=== PATIENT | female | born 1950 | race Caucasian/White ===

== ENCOUNTER 2017-10-19 22:36 | Emergency (ER) | payer BC ==
--- NOTE | 2017-10-19 22:47 | Emergency Department Record ---
History of Present Illness - General Chief Complaint: Choking Stated Complaint: CHOKING ON PILL Time Seen by Provider: 10/19/17 22:42 Source: Patient Mode of Arrival: Ambulatory Limitations: No limitations - History of Present Illness Initial Comments: 67 yo female presents with pill foreign body sensation that occurs just prior to arrival. She states she has history of swallow difficulties and has had this happen in the past. She has a good cough and clear voice but still has a FB sensation. No syncope. No hypoxia on arrival. She states she has had pneumonia in the past from this. She states she is being worked up at [facility]. Onset/Timin -: Minutes(s) Severity: Moderate Improves With: Upright position Worsens With: Lying flat Context: Choking/aspiration Associated Symptoms: Pain with inspiration Treatments Prior to Arrival: None - Related Data Home Oxygen Therapy: No Allergies Allergy/AdvReac Type Severity Reaction Status Date / Time amoxicillin trihydrate Allergy PT UNSURE Verified 01/27/16 19:24 [From Augmentin] OF REACTION aspirin Allergy ITCHING Verified 12/18/14 01:11 ibuprofen [From Motrin] Allergy ITCHING Verified 12/18/14 01:11 naproxen sodium [From Aleve] Allergy ITCHING Verified 12/18/14 01:11 potassium clavulanate Allergy PT UNSURE Verified 01/27/16 19:24 [From Augmentin] OF REACTION Sulfa (Sulfonamide Allergy HIVES Verified 12/18/14 01:11 Antibiotics) amoxicillin AdvReac NAUSEA AND Verified 12/18/14 01:11 VOMITING cephalexin monohydrate AdvReac NAUSEA AND Verified 12/18/14 01:11 [From Keflex] VOMITING Travel Screening - Travel/Exposure Within Last 30 Days Have you traveled within the last 30 days?: No Review of Systems Constitutional: Denies: Chills, Fever, Malaise, Weakness Eyes: Denies: Eye discharge ENT: Denies: Congestion, Throat pain Respiratory: Denies: Cough, Dyspnea Cardiovascular: Reports: Dyspnea on exertion. Denies: Chest pain, Palpitations , Syncope Endocrine: Denies: Fatigue Gastrointestinal: Denies: Abdominal pain, Diarrhea, Nausea, Vomiting Musculoskeletal: Denies: Arthralgia, Back pain, Myalgia Skin: Denies: Bruising, Change in color, Rash Neurological: Denies: Headache, Numbness, Weakness Psychiatric: Reports: Anxiety Hematological/Lymphatic: Denies: Easy bleeding, Easy bruising Past Medical History - SOCIAL HISTORY Smoking Status: Former smoker Alcohol Use: None Drug Use: None - RESPIRATORY Hx Respiratory Disorders: No - CARDIOVASCULAR Hx Cardio Disorders: Yes Hx Hypertension: Yes - NEURO Hx Neuro Disorders: No - GI Hx GI Disorders: No - Hx Genitourinary Disorders: No - ENDOCRINE Hx Endocrine Disorders: No - MUSCULOSKELETAL Hx Musculoskeletal Disorders: Yes Hx Arthritis: Yes - PSYCH Hx Psych Problems: Yes Hx Anxiety: Yes Hx Depression: Yes - HEMATOLOGY/ONCOLOGY Hx Hematology/Oncology Disorders: Yes Hx Cancer: Yes Family Medical History Any Significant Family History?: Yes Family Hx Comment (NOT TO BE USED IN PLACE OF ITEMS BELOW): thyroid issues w/ mother and sister Hx HTN: Mother, Brother/Sister Physical Exam - General General Appearance: Alert, Oriented x3, Anxious - Head Head exam: Atraumatic, Normal inspection - Eye Eye exam: Normal appearance. negative: Conjunctival injection, Scleral icterus - ENT ENT exam: Normal exam, Mucous membranes moist Ear exam: Normal external inspection Nasal Exam: Normal inspection Mouth exam: Normal external inspection - Neck Neck exam: Normal inspection, Full ROM. negative: Tenderness - Respiratory Respiratory exam: Normal lung sounds bilaterally, Other (frequent cough, clear voice) - Cardiovascular Cardiovascular Exam: Regular rate, Normal rhythm, Normal heart sounds - Rectal Rectal exam: Deferred - exam: Deferred - Extremities Extremities exam: Normal inspection - Neurological Neurological exam: Alert, Normal gait, Oriented X3 - Psychiatric Psychiatric exam: Anxious - Skin Skin exam: Dry, Intact, Normal color, Warm Course Vital Signs 10/19/17 22:38 Temperature 96.9 F L Pulse Rate 84 Respiratory 28 H Rate Blood Pressure 139/92 Pulse Ox 94 L - Reevaluation(s) Reevaluation #1: On arrival the patient was placed in the Trauma area. She is coughing frequently but no hypoxia and she has a clear voice. 10/19/17 22:45 10/19/17 23:03 The patient coughed the pill up intact She is doing much better 10/19/17 23:15 No acute changes on the labs The patient continues to do well She has been referred to [facility] in [place]. 10/19/17 23:22 96% on Room Air CXR was negative 10/20/17 00:02 The patient tolerated PO fluids well She will take her pills in the ED under observation She is 96% on Room Air and reports she is comfortable 10/20/17 00:03 10/20/17 00:19 The patient has tolerated all her evening medications without difficulty, choking or cough She will call her doctors tomorrow that are helping with this ongoing problem Medical Decision Making - Lab Data Result diagrams: 10/19/17 22:40 10/19/17 22:40 Disposition Disposition: Discharge Clinical Impression: Pill dysphagia Disposition: Home, Self-Care Condition: (1) Good Instructions: Performing the Heimlich Maneuver (ED), Dysphagia (ED) Additional Instructions: Call your doctor tomorrow to discuss a recurrent episode Take your pills with extreme care Call your pulmonary doctor tomorrow to report this ER visit as well. Forms: Patient Portal Access Time of Disposition: 23:16 Quality - Quality Measures Quality Measures: N/A - Blood Pressure Screening Does Patient Have Any of the Following: No Blood Pressure Classification: Pre-Hypertensive BP Reading Systolic Measurement: 146 Diastolic Measurement: 80 Screening for High Blood Pressure: < Pre-Hypertensive BP, F/U Documented > [ G8950] Pre-Hypertensive Follow-up Interventions: Referral to alternative/primary care provider.
[2017-10-19 22:51] LABS: BASO % 0.3 % (0-6); EOS % 3.5 % (0-6); GRAN % 40.6 % (47-80); HEMATOCRIT 42.4 % (35.0-47.0); HEMOGLOBIN 13.6 gm/dl (11.6-16.0); LYMPH % 48.8 % (16-45); MEAN CORPUSCULAR HEMOGLOBIN 30.2 pg (27-33); MEAN CORPUSCULAR HGB CONC 32.1 g/dl (32-36); MEAN PLATELET VOLUME 9.1 fl (7.4-10.4); MONO % 6.8 % (0-9); PLATELET COUNT 309 K/uL (130-400); RED BLOOD COUNT 4.51 M/uL (3.80-5.40); RED CELL DISTRIBUTION WIDTH 13.6 % (11.5-14.5); WHITE BLOOD COUNT W/O DIFF 7.2 K/uL (4.2-12.2)
[2017-10-19 22:59] LABS: BLOOD UREA NITROGEN 13 mg/dL (8-23)
[2017-10-19 23:00] LABS: CREATININE 0.9 mg/dL (0.5-0.9); EST GLOMERULAR FILTRATION RATE > 60 mL/min
[2017-10-19 23:02] LABS: GLUCOSE,RANDOM 207 mg/dL (74-109)
[2017-10-19 23:03] LABS: PARTIAL THROMBOPLASTIN TIME 24.5 SECONDS (24.5-39.1); PROTHROMBIN TIME (PATIENT) 10.3 SECONDS (9.5-12.1)
[2017-10-20] MEDS ORDERED: ALBUTEROL SULFATE (0.083%) 2.5 MG/3 ML NEB INH ONE (01:08)
--- NOTE | 2017-10-21 09:02 | RADIOLOGY REPORT ---
EXAM: AP CHEST HISTORY: CHOKING ON A PILL. TECHNIQUE: AP views of the upper and lower chest were obtained. Comparison: Two view chest 01/27/16. FINDINGS: Somewhat shallow inspiration compared to the prior study. No definite acute infiltrate seen. The heart size is probably stable allowing for the current AP as opposed to previous PA positioning. No pleural effusion of pneumothorax evident. Surgical clips right axilla again evident. No definite opaque foreign body identified although some foreign bodies will be radiographically indistinguishable from the adjacent soft tissues. IMPRESSION: 1. SOMEWHAT SHALLOW INSPIRATION. 2. NO ACUTE INFILTRATE EVIDENT. 3. SURGICAL CLIPS RIGHT AXILLA. JOB NUMBER: [id number] MTDD
== END 2017-10-20 00:50 | disposition home or self-care (01) ==
LOC: ER 22:36
DX: R13.10 Dysphagia, unspecified (principal); R09.89 Other specified symptoms and signs involving the circulatory and respiratory systems; R05 Cough; I10 Essential (primary) hypertension; Z87.891 Personal history of nicotine dependence
CPT/HCPCS: 71045; 80048; 85025; 85610; 85730; 94640; 99283; 99284

== ENCOUNTER 2019-09-08 14:45 | Emergency (ER) | payer MEDICARE ==
[2019-09-08] MEDS ORDERED: FUROSEMIDE IV 40MG/4ML VIAL IVP ONE (15:16)
[2019-09-08] MEDS ORDERED: IPRATROPIUM/ALBUTEROL (0.5MG/3MG) NEB INH ONE (15:19)
[2019-09-08 15:23] LABS: ABSOLUTE NEUTROPHIL COUNT 3.57; BASO % 0.2 % (0-6); GRAN % 79.9 % (47-80); HEMATOCRIT 35.3 % (35.0-47.0); HEMOGLOBIN 10.3 gm/dl (11.6-16.0); LYMPH % 16.1 % (16-45); MEAN CELL VOLUME 88.3 fl (81-97); MEAN CORPUSCULAR HEMOGLOBIN 25.7 pg (27-33); MEAN CORPUSCULAR HGB CONC 29.2 g/dl (32-36); MEAN PLATELET VOLUME 9.6 fl (7.4-10.4); MONO % 3.8 % (0-9); PLATELET COUNT 223 K/uL (130-400); RED CELL DISTRIBUTION WIDTH 15.7 % (11.5-14.5); WHITE BLOOD COUNT W/O DIFF 4.5 K/uL (4.2-12.2)
--- NOTE | 2019-09-08 15:25 | Emergency Department Record ---
History of Present Illness - General Chief Complaint: Cough Stated Complaint: COUGH Time Seen by Provider: 09/08/19 14:55 Source: Patient, Family Mode of Arrival: Wheelchair Limitations: No limitations - History of Present Illness Initial Comments: The patient is here due to a worsening cough and SOB for 4 days. She denies any CP or sputum production but she was seen at the 3 days ago and told she had pneumonia and was started on Levaquin. Since her SOB has worsened and today due to the severity she decided to come to the ER. There has been no sputum production or leg swelling. MD Complaint: Cough, Other Onset/Timin -: Days(s) - Related Data Home Medications Medication Instructions Recorded Confirmed Last Taken Insulin Glargine,Hum.rec.anlog 24 unit SQ DAILY 09/08/19 09/08/19 Unknown [Lantus] Magnesium Glycinate [Mag Glycinate] 400 mg PO DAILY 09/08/19 09/08/19 Unknown Allergies Allergy/AdvReac Type Severity Reaction Status Date / Time amoxicillin trihydrate Allergy PT UNSURE Verified 09/08/19 15:05 [From Augmentin] OF REACTION aspirin Allergy ITCHING Verified 09/08/19 15:05 ibuprofen [From Motrin] Allergy ITCHING Verified 09/08/19 15:05 naproxen sodium [From Aleve] Allergy ITCHING Verified 09/08/19 15:05 potassium clavulanate Allergy PT UNSURE Verified 09/08/19 15:05 [From Augmentin] OF REACTION Sulfa (Sulfonamide Allergy HIVES Verified 09/08/19 15:05 Antibiotics) amoxicillin AdvReac NAUSEA AND Verified 09/08/19 15:05 VOMITING cephalexin monohydrate AdvReac NAUSEA AND Verified 09/08/19 15:05 [From Keflex] VOMITING Travel/Exposure Screening - Travel/Exposure Within Last 30 Days Have you traveled within the last 30 days?: No - Travel/Exposure Within Last Year Have you traveled outside the [place] in the last year?: No - Additonal Travel/Exposure Details Have you been exposed to anyone with a communicable illness?: No - Travel Symptoms Symptom Screening: Diarrhea, Cough Review of Systems Constitutional: Reports: Malaise. Denies: Chills, Fever Eyes: Denies: Eye discharge ENT: Reports: Congestion Respiratory: Reports: Cough, Dyspnea Cardiovascular: Denies: Chest pain Endocrine: Reports: Fatigue Gastrointestinal: Denies: Nausea Genitourinary: Denies: Dysuria Musculoskeletal: Denies: Arthralgia Neurological: Denies: Abnormal gait Past Medical History - SOCIAL HISTORY Smoking Status: Former smoker Alcohol Use: Occasional Drug Use: None - RESPIRATORY Hx Respiratory Disorders: Yes Hx Asthma: Yes Hx Bronchitis: Yes Hx Pneumonia: Yes (aspiration) - CARDIOVASCULAR Hx Cardio Disorders: Yes Hx Hypertension: Yes - NEURO Hx Neuro Disorders: Yes Hx Headaches: Yes - GI Hx GI Disorders: Yes Comment:: difficult time swallowing-dysphagia- esophageal narrowing - Hx Genitourinary Disorders: No - ENDOCRINE Hx Endocrine Disorders: Yes Hx Diabetes: Yes (type 2) - MUSCULOSKELETAL Hx Musculoskeletal Disorders: Yes Hx Arthritis: Yes Comment:: joint problems in knees - PSYCH Hx Psych Problems: Yes Hx Anxiety: Yes Hx Depression: Yes - HEMATOLOGY/ONCOLOGY Hx Hematology/Oncology Disorders: Yes Hx Cancer: Yes Family Medical History Any Significant Family History?: No Family Hx Comment (NOT TO BE USED IN PLACE OF ITEMS BELOW): thyroid issues w/mother and sister Hx HTN: Mother, Brother/Sister Physical Exam - General General Appearance: Alert, Oriented x3, Cooperative, Mild distress (The patient is in mild respiratory distress and not able to speak in full sentences.) - Head Head exam: Atraumatic, Normocephalic - Eye Eye exam: Normal appearance, PERRL - ENT Throat exam: Normal inspection. negative: Tonsillar erythema, Tonsillar exudate - Neck Neck exam: Normal inspection, Full ROM. negative: Tenderness - Respiratory Respiratory exam: Accessory muscle use (mild.), Rales, Respiratory distress (mild.), Rhonchi, Wheezes. negative: Normal lung sounds bilaterally - Cardiovascular Cardiovascular Exam: Regular rate, Normal rhythm, Normal heart sounds - GI/Abdominal GI/Abdominal exam: Soft, Normal bowel sounds. negative: Tenderness - Extremities Extremities exam: Normal inspection, Full ROM, Normal capillary refill. negative: Tenderness - Back Back exam: Reports: Normal inspection - Neurological Neurological exam: Alert, Normal gait. negative: Abnormal gait Course Vital Signs 09/08/19 14:47 Temperature 98.4 F Pulse Rate 63 Respiratory 24 Rate Blood Pressure 161/81 Pulse Ox 75 L - Reevaluation(s) Reevaluation #1: The patient is doing better at this time. She is breathing easier and is now speaking in full sentences. 09/08/19 16:02 Reevaluation #2: The patient is doing OK at this time. I did discuss the case with Dr. Hogue at [facility] and she did accept the patient for admission. 09/08/19 16:24 Reevaluation #3: The patient has urinated multiple times and is breathing easier. Her O2 sats are up to 96% on NC O2 at 3L and she is clearly improving. On exam her lung aeration is improved. We do have a bed at [facility] and will proceed with the transfer. 09/08/19 17:18 Medical Decision Making - Data Complexity MDM Data: Labs Ordered and/or Reviewed, X-Ray Ordered and/or Reviewed, EKG Or dered and/or Reviewed - Lab Data Result diagrams: 09/08/19 15:00 09/08/19 15:00 - EKG Data -: EKG Interpreted by Me EKG: Abnormal EKG ([place].) - Radiology Data Radiology results: Report reviewed (CXR: CHF) Disposition Disposition: Transfer Clinical Impression: CHF (congestive heart failure) Qualifiers: Heart failure type: unspecified Heart failure chronicity: unspecified Qualified Code(s): I50.9 - Heart failure, unspecified Disposition: Acute Care Hospital Transfer Transfer To: [facility] Reason For Transfer: Cardiology Accepting Physician: Mykel Time Discussed w/Accepting Physician: 16:25 Condition: (2) Stable Forms: Patient Portal Access Time of Disposition: 16:26 Quality - Quality Measures Quality Measures: N/A - Blood Pressure Screening View Details: Yes Does Patient Have Any of the Following: No Blood Pressure Classification: Pre-Hypertensive BP Reading Systolic Measurement: 143 Diastolic Measurement: 80 Screening for High Blood Pressure: < Pre-Hypertensive BP, F/U Documented > [G8950] Pre-Hypertensive Follow-up Interventions: Referral to alternative/primary care provider.
[2019-09-08 15:30] LABS: BLOOD UREA NITROGEN 18 mg/dL (8-23)
[2019-09-08 15:31] LABS: EST GLOMERULAR FILTRATION RATE 58 mL/min; TOTAL PROTEIN 7.4 g/dL (6.6-8.7)
[2019-09-08 15:33] LABS: GLUCOSE,RANDOM 312 mg/dL (74-109)
[2019-09-08 15:34] LABS: PARTIAL THROMBOPLASTIN TIME 25.4 SECONDS (24.5-39.1); PROTHROMBIN TIME (PATIENT) 10.7 SECONDS (9.5-12.1)
[2019-09-08 15:36] LABS: ALB/GLOB RATIO 1.1 (1.1-1.8); ALBUMIN 3.9 g/dL (4.0-5.0); ALKALINE PHOSPHATASE 84 U/L (35-104); ALT/SGPT 15 U/L (<33); AST/SGOT 24 U/L (10.0-35.0)
--- NOTE | 2019-09-08 15:58 | RADIOLOGY REPORT ---
EXAMINATION: Single View Chest EXAM DATE: 09/08/2019 3:47 PM TECHNIQUE: Single view chest INDICATION: GAUTAM COMPARISON: Chest x-ray from 3 days prior ENCOUNTER: Not applicable FINDINGS: Portable AP view the chest again shows retrocardiac consolidation suspicious for infiltrate. Lung vol umes are low and there is mild pulmonary vascular congestion which appears similar to prior. There is no large pleural effusion or pneumothorax. Cardiac silhouette appears within normal limits given low lung volumes. IMPRESSION: 1. Persistent left retrocardiac consolidation suspicious for pneumonia. 2. Stable mild central pulmonary vascular congestion. Dictated by: Matt Garcia MD on 09/08/2019 3:56 PM. .
[2019-09-08] MEDS ORDERED: ALBUTEROL SULFATE (0.083%) 2.5 MG/3 ML NEB INH ONE (16:52)
== END 2019-09-08 17:43 | disposition short-term general hospital (02) ==
LOC: ER 14:45
DX: I50.9 Heart failure, unspecified (principal); R05 Cough; R06.02 Shortness of breath; I10 Essential (primary) hypertension; E11.9 Type 2 diabetes mellitus without complications; Z79.4 Long term (current) use of insulin
CPT/HCPCS: 71045; 80053; 83880; 84484; 85025; 85610; 85730; 86140; 93005; 93010; 94640; 96374; 99285; J1940; J7613